=== PATIENT | male | born 1930 | race Caucasian/White ===

== ENCOUNTER 2018-08-28 08:34 | Day surgery (SDC) ==
[2018-08-28] MEDS ORDERED: BRIMONIDINE TARTRATE 0.2% OPTH SOL OP PRN (10:11)
[2018-08-28] MEDS ORDERED: LIDOCAINE 1% 20 ML MDV ID STA (10:11)
[2018-08-28] MEDS ORDERED: ZOFRAN 4 MG/2 ML IVP ONE (10:11)
[2018-08-28] MEDS ORDERED: LIDOCAINE 1%/PHENYLEPHRINE 1.5% BSS (SURGERY) INTRAOCULA ONE (10:11)
[2018-08-28] MEDS ORDERED: DEX-MOXI-KETOR OPTH INJ 1/0.5/0.4 MG/ML IO ONE (10:11)
[2018-08-28] MEDS ORDERED: BSS WITH EPINEPHRINE OP ONE (10:11)
[2018-08-28] MEDS: CYCLOGYL 2% OPTH OP PRN ×3 (10:15→10:25)
[2018-08-28] MEDS: TETRACAINE 0.5% UNIT-DOSE OP PRN ×2 (10:15→10:50)
[2018-08-28] MEDS: BETADINE OPTH PREP OP PRN ×2 (10:15→10:50)
[2018-08-28] MEDS ORDERED: AK-DILATE 10% OPTH SOL OP PRN (10:27)
[2018-08-28] MEDS ORDERED: SUBLIMAZE ONE (10:45)
[2018-08-28] MEDS ORDERED: VERSED ONE (10:45)
[2018-08-28] MEDS ORDERED: ZOFRAN 4 MG/2 ML ONE (10:45)
[2018-08-28 12:31] VITALS: TEMP 97.4
[2018-08-28 14:19] VITALS: BP 126/45
== END 2018-08-28 11:45 | disposition home or self-care (01) ==
LOC: SURG 08:34
PROVIDERS: ATTEND Ophthalmology
DX: H25.812 Combined forms of age-related cataract, left eye (principal)

== ENCOUNTER 2018-09-12 07:47 | Day surgery (SDC) | payer OTHER ==
[~2018-09-12 07:47] MED LIST: BRIMONIDINE TARTRATE 0.2% OPTH SOL OP PRN; BSS WITH EPINEPHRINE OP ONE; DEX-MOXI-KETOR OPTH INJ 1/0.5/0.4 MG/ML IO ONE; LIDOCAINE 1% 20 ML MDV ID STA; LIDOCAINE 1%/PHENYLEPHRINE 1.5% BSS (SURGERY) INTRAOCULA ONE; ZOFRAN 4 MG/2 ML IVP ONE
[2018-09-12] MEDS: CYCLOGYL 2% OPTH OP PRN ×3 (08:30→08:40)
[2018-09-12] MEDS: TETRACAINE 0.5% UNIT-DOSE OP PRN ×2 (08:30→09:19)
[2018-09-12] MEDS: BETADINE OPTH PREP OP PRN ×2 (08:30→09:19)
[2018-09-12] MEDS ORDERED: VERSED ONE (09:08)
[2018-09-12] MEDS ORDERED: SUBLIMAZE ONE (09:08)
[2018-09-12 13:52] VITALS: TEMP 98
[2018-09-13 17:02] VITALS: BP 126/68
== END 2018-09-12 10:05 | disposition home or self-care (01) ==
LOC: SURG 07:47
PROVIDERS: ATTEND Ophthalmology
DX: H25.811 Combined forms of age-related cataract, right eye (principal)